=== PATIENT | female | born 1970 | race Caucasian/White ===

== ENCOUNTER 2017-03-14 18:10 | Emergency (ER) | payer OTHER ==
[~2017-03-14] VITALS: Wt 108.0 kg
[2017-03-14] MEDS ORDERED: NITROGLYCERIN (SL) 0.4 MG TAB SL ONE (22:00)
[2017-03-14] MEDS ORDERED: ENALAPRILAT 1.25 MG INJ IV ONE (22:00)
[2017-03-14] MEDS ORDERED: CLOPIDOGREL 75 MG TAB PO ONE (22:00)
--- NOTE | 2017-03-14 22:02 | ERD ---
ER Documentation Chief Complaint Chief Complaint CHEST PAIN X 3 DAYS HPI 46-year-old woman with a history of hypertension diagnosed last year, not currently using antihypertensives complains of orthopnea and dyspnea on exertion 3 days with pressure-like chest discomfort and intermittent palpitations. She states for the last 3 days she has had decreased urinary frequency. She also had a headache today which resolved spontaneously. She states she has been feeling weak and dizzy for the last few weeks. She states about a week ago she had lower extremity edema which resolved spontaneously. She denies fevers or chills, no cough, no weight loss, no slurred speech, no weakness in her arms or legs. Patient denies weight loss, no blood per rectum, no melena. ROS All systems reviewed and are negative except as per history of present illness. Medications Home Meds Active Scripts Hydrochlorothiazide* (Hydrochlorothiazide*) 25 Mg Tab, 25 MG PO BID, #60 TAB Prov:MOISES MEDRANO MD 03/14/17 Lisinopril* (Lisinopril*) 10 Mg Tablet, 10 MG PO DAILY, #30 TAB Prov:MOISES MEDRANO MD 03/14/17 PMhx/Soc Obesity, hypertension FmHx Family History: No diabetes Physical Exam Vitals Vital Signs Date Time Temp Pulse Resp B/P Pulse Ox O2 Delivery O2 Flow Rate FiO2 03/14/17 18:13 98.0 88 18 233/98 99 Physical Exam GENERAL: Well-developed, well-nourished, well-hydrated, in no apparent distress , looks nontoxic in appearance HEENT: Moist mucous membranes, pink conjunctiva, no cervical spine tenderness or step-off deformities, no goiter, no jaundice or icterus, extraocular movements intact without pain. No submandibular induration, and no pharyngeal erythema NEURO: Alert and oriented 3, cranial nerves II through XII intact bilaterally, pupils equal round reactive to light, no focal deficits or facial asymmetry, sensation intact distally Strength 5/5 in upper and lower extremities bilaterally CARDIAC: Regular rate and rhythm, no murmurs rubs or gallops LUNGS: Bibasilar crackles ABDOMEN: Soft nontender, no guarding, no rigidity, no rebound, no psoas sign no obturator sign. Normoactive bowel sounds SKIN: Warm and dry to touch, no abrasions, contusions, or hematomas, no lacerations, no ecchymosis, no target lesions, and without ulcers EXTREMITIES: No clubbing cyanosis or edema, calves are bilaterally symmetrical, no Homans sign, no popliteal cord sign. Distal pulses equal and bilateral PSYCH: Normal affect without agitation or irritability Result Diagram: 03/14/17221403/14/172214 Results 24 hrs Laboratory Tests Test 03/14/17 22:15 White Blood Count 11.110^3/ul Red Blood Count 4.3010^6/ul Hemoglobin 14.0g/dl Hematocrit 41.7% Mean Corpuscular Volume 97.0fl Mean Corpuscular Hemoglobin 32.6pg Mean Corpuscular Hemoglobin Concent 33.6g/dl Red Cell Distribution Width 12.9% Platelet Count 23455^3/UL Mean Platelet Volume 9.5fl Neutrophils % 48.7% Lymphocytes % 38.9% Monocytes % 8.3% Eosinophils % 3.0% Basophils % 0.5% Nucleated Red Blood Cells % 0.0/100WBC Neutrophils # 5.410^3/ul Lymphocytes # 4.310^3/ul Monocytes # 0.910^3/ul Eosinophils # 0.310^3/ul Basophils # 0.110^3/ul Nucleated Red Blood Cells # 0.010^3/ul Urine Color YELLOW Urine Clarity CLEAR Urine pH 6.0 Urine Specific [place] 1.014 Urine Ketones NEGATIVEmg/dL Urine Nitrite NEGATIVEmg/dL Urine Bilirubin NEGATIVEmg/dL Urine Urobilinogen NEGATIVEmg/dL Urine Leukocyte Esterase NEGATIVELeu/ul Urine Hemoglobin NEGATIVEmg/dL Urine Glucose NEGATIVEmg/dL Urine Total Protein NEGATIVEmg/dl Sodium Level 142mmol/L Potassium Level 3.7mmol/L Chloride Level 104mmol/L Carbon Dioxide Level 27mmol/L Anion Gap 15 Blood Urea Nitrogen 5mg/dl Creatinine 0.63mg/dl Glucose Level 98mg/dl Calcium Level 9.1mg/dl Total Bilirubin 0.1mg/dl Direct Bilirubin 0.00mg/dl Indirect Bilirubin 0.1mg/dl Aspartate Amino Transf (AST/SGOT) 58IU/L Alanine Aminotransferase (ALT/SGPT) 58IU/L Alkaline Phosphatase 102IU/L Troponin I < 0.012ng/ml B-Type Natriuretic Peptide 46PG/ML Total Protein 7.9g/dl Albumin 4.3g/dl Globulin 3.60g/dl Albumin/Globulin Ratio 1.19 Lipase 103U/L Thyroid Stimulating Hormone (TSH) Pending Free Thyroxine 1.13ng/dl Free Triiodothyronine (T3) pg/mL 4.36pg/ml Current Medications Medications (Trade) Dose Ordered Sig/[place] Route PRN Reason Start Time Stop Time Status Last Admin Dose Admin Clopidogrel Bisulfate (plaVIX) 300 mg ONCE ONCE PO 03/14/17 22:00 03/14/17 22:01 DC 03/14/17 22:34 Nitroglycerin (Nitroglycerin (Sl Tab) 0.4 Mg) 1 tab ONCE ONCE SL 03/14/17 22:00 03/14/17 22:01 DC 03/14/17 22:34 Enalaprilat (Vasotec Iv) 1.25 mg ONCE ONCE IV 03/14/17 22:00 03/14/17 22:01 DC 03/14/17 22:34 Procedures/MDM IV line was established patient was placed on chief digital officer rhythm strip revealed a sinus rhythm at about 70 bpm with upright P and T waves. Patient was afebrile EKG performed, read by me: 72 bpm, normal sinus rhythm, normal axis, no acute ST segment changes, narrow QRS complex, with good R-wave progression in precordial leads. I am concerned about renal issues contributing to severe hypertension and in the setting of decreased urinary frequency bladder outlet obstruction is a possibility so [place] catheter was placed. Urine was drained successfully without difficulty. One AP view of the chest performed, read by me reveals no acute infiltrates, normal mediastinum, sharp costophrenic and cardiac borders, no air under the diaphragm. Otherwise unremarkable chest x-ray. Patient states she has a aspirin allergy so for cardioprotective measures I administered clopidogrel 300 mg p.o. 1. She also received nitroglycerin 0.4 mg sublingual 1 and enalapril 1.25 mg IV 1 for hypertension. CBC was unremarkable, electrolytes normal, BNP negative, troponin negative, liver function tests normal, urinalysis negative for infection and negative for urine proteins. Renal function appears well-preserved and creatinine is normal. Thyroid panel was within normal limits. Patient states specifically she feels much more mentally "clear" and her systolic and diastolic pressures have fallen about 40 points each. Her blood pressure is within normal limits at this time although I suspect she definitely has hypertension and will be managed as an outpatient with both lisinopril and hydrochlorothiazide twice daily. Neurologic exam was repeated by me and remained normal she has no focal deficits , paresis, or asymmetry. Patient is without complaints of headache or dizziness. No CT imaging of the brain indicated at this time. Patient denies blurry vision or recent vision changes but I cautioned her against hypertensive retinopathy with chronic uncontrolled hypertension Differential diagnoses considered, included but not limited to acute coronary syndrome, pulmonary embolism, aortic dissection, abdominal aortic aneurysm, sepsis, stroke, meningitis, encephalitis, pneumonia, appendicitis, cholecystitis , bowel obstruction, pyelonephritis, nephrolithiasis, cystitis, as well as metabolic, hematologic, and electrolyte abnormalities. As well as abscess, cellulitis, fractures, and dislocations. Patient feels much better at this time, and vital signs are normal, symptoms have improved. I did give strict instructions to return to the ED if symptoms continue or worsen, patient will otherwise follow-up with primary care physician. Patient understood instructions and agreed to plan. Disclaimer: Inadvertent spelling and grammatical errors are likely due to EHR/ dictation software use and do not reflect on the overall quality of patient care. Also, please note that the electronic time recorded on this note does not necessarily reflect the actual time of the patient encounter. Departure Diagnosis: Primary Impression: Hypertension Hypertension type: essential hypertension Qualified Code: I10 - Essential hypertension Condition: MOISES Muhammad MD Mar 14, 2017 22:02
--- NOTE | 2017-03-14 22:40 | RADRPT ---
PROCEDURE: XR Chest. CLINICAL INDICATION: Shortness of breath. TECHNIQUE: PA and Lateral views of the chest were obtained. COMPARISON: None. FINDINGS: The cardiomediastinal silhouette is within normal limits. The lungs are clear. No signs of pleural f luid or pneumothorax are seen. The osseous structures and soft tissues are unremarkable. IMPRESSION: No evidence for active cardiopulmonary disease. RPTAT:AAJJ Luis Manuel Munoz Physician Date Time Electronically viewed and signed by Luis Manuel Munoz Physician on 03/14/2017 22:39 QL/
[2017-03-14] MEDS ORDERED: HYDR25TA6 PO (23:28)
[2017-03-14] MEDS ORDERED: LISI10TA2 PO (23:28)
[2017-03-15 06:47] VITALS: BP 134/80; PULSE 82; RESP 18; TEMP 98
== END 2017-03-15 06:49 | disposition home or self-care (01) ==
LOC: E/R 18:10
DX: I10 Essential (primary) hypertension (principal); R06.02 Shortness of breath
CPT/HCPCS: 36415; 71010; 80053; 81003; 83690; 83880; 84439; 84443; 84481; 84484; 85025; 93005; 96374; Z7502; Z7610